=== PATIENT | female | born 1950 | race Two or more races ===

== ENCOUNTER 2020-05-14 03:57 | Inpatient (IN) | payer OTHER, MEDICAID ==
[~2020-05-14] VITALS: Ht 154.9 cm; Wt 46.7 kg
[2020-05-14] MEDS ORDERED: PANTOPRAZOLE 40 MG/10 ML VIAL INJ IV STA (06:51)
[2020-05-14] MEDS ORDERED: SODIUM CHLORIDE 0.9% 500 ML IVB ONE (07:00)
[2020-05-14] MEDS ORDERED: ONDANSETRON HCL 4 MG/2 ML VIAL IV ONE (07:00)
[2020-05-14] MEDS ORDERED: MORPHINE SULFATE 4 MG/ML SYR/VIAL IV ONE (07:00)
[2020-05-14 07:24] LABS: Basophils # (auto) 0.1 10 ^3/uL (0-0.2); Basophils % (auto) 1.1 % (0.0-2.0); Eosinophils # (auto) 0 10 ^3/uL (0-0.8); Hematocrit 45.7 % (36.0-46.0); Hemoglobin 15.4 g/dL (12.2-16.2); Lymphocytes # (auto) 1.3 10 ^3/uL (0.4-5.4); Mean Corpuscular Hgb Conc. 33.7 g/dL (32.0-36.0); Monocytes % (auto) 7.2 % (0.0-12.0); Neutrophils # (auto) 10.8 10 ^3/uL (1.6-8.6); Neutrophils % (auto) 81.7 % (37.0-80.0); Nucleated Red Blood Cells % 0.1 %; Platelet Count (auto) 281 10^3/uL (140-450); Red Blood Cells 4.97 10^6/uL (4.0-5.20); Red Cell Distribution Width 15.3 % (11.8-14.3); White Blood Cell 13.3 10^3/uL (4.4-10.8)
[2020-05-14 07:43] LABS: Albumin 4.9 g/dL (3.4-5.0); Anion Gap 19 (5-15); Calcium 8.7 mg/dL (8.5-10.1); Carbon Dioxide 34 mmol/L (21-32); Chloride 83 mmol/L (98-107); Glucose 156 mg/dL (74-106); Lipase 79 U/L (73-393); Potassium 3.2 mmol/L (3.5-5.1); Sodium 136 mmol/L (136-145)
[2020-05-14 07:50] LABS: Alanine Aminotransferase 33 U/L (13-56); Alkaline Phosphatase 166 U/L (45-117); Aspartate Aminotransferase 20 U/L (15-37); BUN/Creatinine Ratio 10.1; Blood Urea Nitrogen 60 mg/dL (7-18); GFR African American 9 mL/min; GFR Non-African American 7 mL/min; Total Protein 10.7 g/dL (6.4-8.2)
[2020-05-14] MEDS ORDERED: cefTRIAXone 1GM/50ML D5W 50 ML IV ONE (10:45)
[2020-05-14] MEDS ORDERED: DEXTROSE (50%) 50ML SYRG IV PRN (10:45)
[2020-05-14] MEDS ORDERED: PROMETHAZINE HCL 25 MG/ML 1ML IV PRN (10:45)
[2020-05-14] MEDS ORDERED: MORPHINE SULF INJ 2 MG/ML SYRINGE 1ML IV PRN ×2 (10:45)
[2020-05-14] MEDS ORDERED: POTASSIUM EFFERVESENT TAB 25 MEQ PO ONE (10:45)
[2020-05-14] MEDS ORDERED: traMADol HCL 50 MG TAB PO PRN ×2 (10:45→11:15)
[2020-05-14] MEDS ORDERED: NITROGLYCERIN 0.4 MG SL TAB SL PRN (10:45)
[2020-05-14] MEDS ORDERED: ACETAMINOPHEN 500 MG TAB PO PRN (10:45)
[2020-05-14 11:29] LABS: CRP High Sensitivity 0.414 mg/dL (< 0.3)
[2020-05-14] MEDS: ACCU-CHEK COMFORT CURVE STRIP VI SCH ×3 (16:16→22:00)
[2020-05-14] MEDS: SODIUM CHLORIDE 0.9% 1,000 ML IV SCH ×2 (16:16→21:11)
[2020-05-14] MEDS: metroNIDAZOLE 500MG/100ML 100 ML IV SCH (21:10)
[2020-05-14] MEDS: SUCRALFATE 1 GM/10 ML ORAL SUSP PO SCH ×2 (21:17→22:00)
[2020-05-14 21:22] LABS: Urine Bacteria FEW /hpf (None Seen); Urine Blood TRACE /uL (Negative); Urine Mucus FEW (None Seen); Urine Specific Gravity 1.017 (1.001-1.035); Urine WBC 1 /hpf (0 - 5)
[2020-05-15] MEDS: metroNIDAZOLE 500MG/100ML 100 ML IV SCH ×4 (03:03→21:56)
[2020-05-15] MEDS: PANTOPRAZOLE 40 MG TAB PO SCH ×3 (03:03→21:56)
[2020-05-15 06:35] LABS: Basophils # (auto) 0 10 ^3/uL (0-0.2); Basophils % (auto) 0.3 % (0.0-2.0); Eosinophils # (auto) 0 10 ^3/uL (0-0.8); Eosinophils % (auto) 0.2 % (0.0-7.0); Hematocrit 38.6 % (36.0-46.0); Hemoglobin 12.6 g/dL (12.2-16.2); Lymphocytes # (auto) 1.7 10 ^3/uL (0.4-5.4); Lymphocytes % (auto) 19.4 % (10.0-50.0); Mean Corpuscular Hemoglobin 30.2 pg (28.0-32.0); Mean Corpuscular Hgb Conc. 32.7 g/dL (32.0-36.0); Mean Corpuscular Volume 92.1 fL (80.0-100.0); Monocytes # (auto) 0.8 10 ^3/uL (0-1.3); Monocytes % (auto) 9.3 % (0.0-12.0); Neutrophils # (auto) 6.4 10 ^3/uL (1.6-8.6); Neutrophils % (auto) 70.8 % (37.0-80.0); Platelet Count (auto) 204 10^3/uL (140-450); Red Blood Cells 4.19 10^6/uL (4.0-5.20); Red Cell Distribution Width 15.1 % (11.8-14.3)
[2020-05-15 06:47] LABS: INR 1.09 (0.9-1.15)
[2020-05-15 07:03] LABS: Albumin 3.9 g/dL (3.4-5.0); BUN/Creatinine Ratio 18.8; Bilirubin, Total 1.4 mg/dL (0.2-1.0); Calcium 8.7 mg/dL (8.5-10.1); Total Protein 8.4 g/dL (6.4-8.2)
[2020-05-15 07:13] LABS: Potassium 2.8 mmol/L (3.5-5.1)
[2020-05-15] MEDS ORDERED: SODIUM CHLORIDE LOCK 10 ML ONE (09:48)
[2020-05-15] MEDS ORDERED: LIDOCAINE VISCOUS 2% 15ML UD ONE (09:48)
[2020-05-15] MEDS ORDERED: diphenhdrAMINE HCL 50 MG/1 ML VL ONE (09:49)
[2020-05-15] MEDS: cefTRIAXone 1GM/50ML D5W 50 ML IV SCH (09:57)
[2020-05-15] MEDS: SUCRALFATE 1 GM/10 ML ORAL SUSP PO SCH ×4 (09:57→21:56)
[2020-05-15] MEDS: SODIUM CHLORIDE 0.9% 1,000 ML IV SCH ×2 (09:58→16:40)
[2020-05-15] MEDS: ENOXAPARIN SOD 30 MG/0.3 ML SYRINGE SC SCH (10:00)
[2020-05-15] MEDS: ACCU-CHEK COMFORT CURVE STRIP VI SCH ×4 (10:08→21:57)
[2020-05-15] MEDS ORDERED: POTASSIUM CHLORIDE 40 MEQ, LIDOCAINE 1% (LOCAL ANESTH.) 4 ML in SODIUM CHL 0.9% 250 ML IV ONE (11:45)
[2020-05-15] MEDS: MIDAZOLAM HCL 5 MG/ML-1ML VIAL ONE ×2 (12:52→12:55)
[2020-05-15] MEDS: fentaNYL CITRATE 100 MCG/2 ML VL ONE ×2 (12:52→12:55)
[2020-05-15 13:30] VITALS: BP 107/71
[2020-05-15 14:18] VITALS: BP 110/64
[2020-05-15 16:00] VITALS: BP 110/64
[2020-05-15] MEDS ORDERED: ONDA-144 PO (16:24)
[2020-05-15] MEDS ORDERED: OLAN20TA13 PO (16:24)
[2020-05-15] MEDS ORDERED: PANT40TA2 PO (16:24)
[2020-05-15] MEDS ORDERED: INFLUENZA QUAD 2020-2021 0.5 ML SYRG IM ONE (16:30)
[2020-05-15 18:10] LABS: BUN/Creatinine Ratio 26.2; Calcium 8.7 mg/dL (8.5-10.1); Potassium 3.5 mmol/L (3.5-5.1)
[2020-05-15 21:00] VITALS: BP 127/73
[2020-05-16] MEDS: SODIUM CHLORIDE 0.9% 1,000 ML IV SCH ×2 (02:45→12:17)
[2020-05-16 05:00] VITALS: BP 130/72
[2020-05-16] MEDS: ACCU-CHEK COMFORT CURVE STRIP VI SCH ×3 (06:09→17:00)
[2020-05-16] MEDS: SUCRALFATE 1 GM/10 ML ORAL SUSP PO SCH ×2 (06:09→12:15)
[2020-05-16] MEDS: metroNIDAZOLE 500MG/100ML 100 ML IV SCH ×2 (06:09→14:20)
[2020-05-16 09:17] LABS: Basophils # (auto) 0 10 ^3/uL (0-0.2); Basophils % (auto) 0.7 % (0.0-2.0); Eosinophils # (auto) 0 10 ^3/uL (0-0.8); Eosinophils % (auto) 0.7 % (0.0-7.0); Hematocrit 36.2 % (36.0-46.0); Lymphocytes # (auto) 1.9 10 ^3/uL (0.4-5.4); Lymphocytes % (auto) 30.7 % (10.0-50.0); Mean Corpuscular Hemoglobin 31.1 pg (28.0-32.0); Mean Corpuscular Hgb Conc. 33.1 g/dL (32.0-36.0); Mean Corpuscular Volume 93.8 fL (80.0-100.0); Monocytes # (auto) 0.6 10 ^3/uL (0-1.3); Monocytes % (auto) 10.7 % (0.0-12.0); Neutrophils # (auto) 3.5 10 ^3/uL (1.6-8.6); Neutrophils % (auto) 57.2 % (37.0-80.0); Nucleated Red Blood Cells % 0.1 %; Platelet Count (auto) 185 10^3/uL (140-450); Red Blood Cells 3.86 10^6/uL (4.0-5.20); Red Cell Distribution Width 14.4 % (11.8-14.3)
[2020-05-16 09:35] LABS: Calcium 9.5 mg/dL (8.5-10.1); Potassium 3.2 mmol/L (3.5-5.1)
[2020-05-16 09:53] LABS: BUN/Creatinine Ratio 30.7
[2020-05-16] MEDS: cefTRIAXone 1GM/50ML D5W 50 ML IV SCH (10:29)
[2020-05-16] MEDS: PANTOPRAZOLE 40 MG TAB PO SCH (10:29)
[2020-05-16] MEDS: ENOXAPARIN SOD 30 MG/0.3 ML SYRINGE SC SCH (10:30)
[2020-05-16] MEDS ORDERED: POTASSIUM CHL 20 Meq TABLET PO ONE (13:15)
[2020-05-16 15:12] VITALS: BP 142/74
== END 2020-05-16 19:15 | disposition home or self-care (01) | DRG 871 ==
LOC: EDBD 03:57 → ER 03:57 → TELE 03:58 → TELE-WESTW 05-15 12:41
PROVIDERS: ADMIT Internal Medicine; ATTEND Family Medicine
PROC: 3E02340 Introduction of Influenza Vaccine into Muscle, Percutaneous Approach (ICD-10-PCS; 2020-05-15)
PROC: 0DB68ZX Excision of Stomach, Via Natural or Artificial Opening Endoscopic, Diagnostic (ICD-10-PCS; principal; 2020-05-15 11:45)
DX: A41.9 Sepsis, unspecified organism (principal); N17.0 Acute kidney failure with tubular necrosis; N39.0 Urinary tract infection, site not specified; E87.1 Hypo-osmolality and hyponatremia; K29.00 Acute gastritis without bleeding; K29.80 Duodenitis without bleeding; K20.90 Esophagitis, unspecified without bleeding; E87.6 Hypokalemia; E87.8 Other disorders of electrolyte and fluid balance, not elsewhere classified; R19.7 Diarrhea, unspecified; N18.9 Chronic kidney disease, unspecified; K44.9 Diaphragmatic hernia without obstruction or gangrene; R73.9 Hyperglycemia, unspecified; F17.210 Nicotine dependence, cigarettes, uncomplicated; K57.30 Diverticulosis of large intestine without perforation or abscess without bleeding; Z87.442 Personal history of urinary calculi; Z90.49 Acquired absence of other specified parts of digestive tract; Z88.6 Allergy status to analgesic agent; Z20.828 Contact with and (suspected) exposure to other viral communicable diseases; Z23 Encounter for immunization
CPT/HCPCS: 36415; 43239; 74176; 76775; 80048; 80053; 81001; 82550; 82962; 83036; 83690; 84484; 85025; 85610; 85652; 86141; 87086; 93005; 96361; 96374; 96375; 99291; C9113; G0378; J0696; J2001; J2250; J2405; J3490

== ENCOUNTER 2020-11-30 20:32 | Emergency (ER) | payer OTHER, MEDICAID ==
[~2020-11-30] VITALS: Ht 167.6 cm; Wt 81.6 kg
[~2020-11-30 20:32] MED LIST: OLAN20TA PO; ONDA-144 PO; PANT40TA2 PO
[2020-11-30] MEDS ORDERED: ONDANSETRON HCL 4 MG/2 ML VIAL IV ONE (21:30)
[2020-11-30 22:42] LABS: Basophils # (auto) 0.1 10 ^3/uL (0-0.2); Basophils % (auto) 0.5 % (0.0-2.0); Eosinophils # (auto) 0 10 ^3/uL (0-0.8); Hematocrit 47.2 % (36.0-46.0); Hemoglobin 16.6 g/dL (12.2-16.2); Lymphocytes # (auto) 1.6 10 ^3/uL (0.4-5.4); Lymphocytes % (auto) 10.4 % (10.0-50.0); Mean Corpuscular Hemoglobin 30.3 pg (28.0-32.0); Mean Corpuscular Hgb Conc. 35.2 g/dL (32.0-36.0); Monocytes # (auto) 0.9 10 ^3/uL (0-1.3); Monocytes % (auto) 5.7 % (0.0-12.0); Neutrophils # (auto) 12.7 10 ^3/uL (1.6-8.6); Neutrophils % (auto) 83.4 % (37.0-80.0); Red Blood Cells 5.49 10^6/uL (4.0-5.20); Red Cell Distribution Width 14.6 % (11.8-14.3); White Blood Cell 15.2 10^3/uL (4.4-10.8)
[2020-11-30 22:56] LABS: INR 1.14 (0.9-1.15); Partial Thromboplastin Time 26.2 sec (23.0-31.2)
[2020-11-30 22:59] LABS: Albumin 5.2 g/dL (3.4-5.0); Calcium 9.5 mg/dL (8.5-10.1); Magnesium 1.6 mg/dL (1.6-2.6)
[2020-11-30] MEDS ORDERED: SODIUM CHLORIDE 0.9% 500 ML IV ONE (23:00)
[2020-11-30 23:04] LABS: BUN/Creatinine Ratio 8.7
[2020-12-01] MEDS ORDERED: POTASSIUM CHL 20 Meq TABLET PO ONE (04:00)
[2020-12-01] MEDS: POTASSIUM CHL 20MEQ/100ML 100 ML IV SCH ×2 (04:14→05:47)
[2020-12-01 07:45] VITALS: BP 146/93
== END 2020-12-01 05:12 | disposition home or self-care (01) ==
LOC: EDBD 20:32 → ER 20:32
DX: E87.6 Hypokalemia (principal); K52.9 Noninfective gastroenteritis and colitis, unspecified; K21.9 Gastro-esophageal reflux disease without esophagitis; I12.9 Hypertensive chronic kidney disease with stage 1 through stage 4 chronic kidney disease, or unspecified chronic kidney disease; N18.9 Chronic kidney disease, unspecified; F17.210 Nicotine dependence, cigarettes, uncomplicated; Z90.49 Acquired absence of other specified parts of digestive tract; Z79.899 Other long term (current) drug therapy; Z88.6 Allergy status to analgesic agent
CPT/HCPCS: 36415; 71045; 80053; 83735; 83880; 84484; 85025; 85049; 85610; 85730; 93005; 96361; 96365; 96366; 96375; 99285; J2405; J3480

== ENCOUNTER 2021-02-25 18:47 | Inpatient (IN) | payer OTHER, MEDICAID ==
[~2021-02-25] VITALS: Ht 172.7 cm; Wt 47.6 kg
[2021-02-25] MEDS ORDERED: SODIUM CHLORIDE 0.9% 500 ML IVB ONE (19:30)
[2021-02-25] MEDS ORDERED: ONDANSETRON HCL 4 MG/2 ML VIAL IV ONE (19:30)
[2021-02-25 20:33] LABS: Basophils # (auto) 0.1 10 ^3/uL (0-0.2); Basophils % (auto) 0.5 % (0.0-2.0); Eosinophils # (auto) 0 10 ^3/uL (0-0.8); Hematocrit 44.1 % (36.0-46.0); Hemoglobin 14.6 g/dL (12.2-16.2); Lymphocytes # (auto) 1.3 10 ^3/uL (0.4-5.4); Lymphocytes % (auto) 7.7 % (10.0-50.0); Mean Corpuscular Hemoglobin 29.6 pg (28.0-32.0); Mean Corpuscular Hgb Conc. 33.1 g/dL (32.0-36.0); Mean Corpuscular Volume 89.5 fL (80.0-100.0); Monocytes # (auto) 0.5 10 ^3/uL (0-1.3); Neutrophils # (auto) 14.6 10 ^3/uL (1.6-8.6); Neutrophils % (auto) 88.8 % (37.0-80.0); Nucleated Red Blood Cells % 0.1 %; Red Blood Cells 4.93 10^6/uL (4.0-5.20); Red Cell Distribution Width 14.9 % (11.8-14.3); White Blood Cell 16.4 10^3/uL (4.4-10.8)
[2021-02-25] MEDS ORDERED: IOHEXOL 300 MG/ML 100ML BOTTLE IJ ONE (20:39)
[2021-02-25 20:50] LABS: Albumin 4.3 g/dL (3.4-5.0); Calcium 10.4 mg/dL (8.5-10.1); Potassium 3.7 mmol/L (3.5-5.1)
[2021-02-25 20:51] LABS: Lactic Acid w/Reflex 5.2 mmol/L (0.4-2.0)
[2021-02-25 20:53] LABS: BUN/Creatinine Ratio 11.3; Bilirubin, Total 0.8 mg/dL (0.2-1.0); Total Protein 9.7 g/dL (6.4-8.2)
[2021-02-25] MEDS ORDERED: cefTRIAXone 1GM/50ML D5W 50 ML IV ONE (22:00)
[2021-02-25] MEDS ORDERED: SODIUM CHLORIDE 0.9% 500 ML IV ONE (22:00)
[2021-02-26] MEDS ORDERED: ONDANSETRON HCL 4 MG/2 ML VIAL IV ONE (00:45)
[2021-02-26 07:03] LABS: Urine Bacteria NONE SEEN /hpf (None Seen); Urine Blood Negative /uL (Negative); Urine Mucus FEW (None Seen); Urine WBC 3 /hpf (0 - 5)
[2021-02-26 07:37] LABS: Urine Specific Gravity > 1.050 (1.001-1.035)
[2021-02-26] MEDS ORDERED: NITROGLYCERIN 0.4 MG SL TAB SL PRN (09:30)
[2021-02-26] MEDS ORDERED: ONDANSETRON HCL 4 MG/2 ML VIAL IV PRN (09:30)
[2021-02-26] MEDS ORDERED: MORPHINE SULFATE INJECTION 2 MG/ML SYRG IV PRN (09:30)
[2021-02-26] MEDS ORDERED: PANTOPRAZOLE 40 MG/10 ML VIAL INJ IV SCH (10:00)
[2021-02-26 10:38] LABS: Basophils # (auto) 0.1 10 ^3/uL (0-0.2); Basophils % (auto) 0.4 % (0.0-2.0); Eosinophils # (auto) 0 10 ^3/uL (0-0.8); Eosinophils % (auto) 0.1 % (0.0-7.0); Hematocrit 37.9 % (36.0-46.0); Hemoglobin 12.4 g/dL (12.2-16.2); Lymphocytes # (auto) 1.7 10 ^3/uL (0.4-5.4); Mean Corpuscular Hemoglobin 29.6 pg (28.0-32.0); Mean Corpuscular Hgb Conc. 32.8 g/dL (32.0-36.0); Mean Corpuscular Volume 90.2 fL (80.0-100.0); Monocytes # (auto) 1.2 10 ^3/uL (0-1.3); Monocytes % (auto) 7.2 % (0.0-12.0); Neutrophils # (auto) 13.8 10 ^3/uL (1.6-8.6); Neutrophils % (auto) 82.3 % (37.0-80.0); Red Cell Distribution Width 15.3 % (11.8-14.3); White Blood Cell 16.8 10^3/uL (4.4-10.8)
[2021-02-26 11:00] LABS: BUN/Creatinine Ratio 18.4; Calcium 8.3 mg/dL (8.5-10.1); Potassium 3.4 mmol/L (3.5-5.1)
[2021-02-26] MEDS: SODIUM CHLORIDE 0.9% 1,000 ML IV SCH ×2 (11:37→23:04)
[2021-02-26] MEDS: PIPERACILLIN-TAZOB 2.25GM 50 ML IV SCH ×2 (12:35→22:04)
[2021-02-26] MEDS ORDERED: SUCRALFATE 1 GM/10 ML ORAL SUSP ONE (17:25)
[2021-02-26] MEDS: SUCRALFATE 1 GM/10 ML ORAL SUSP PO SCH ×2 (17:28→22:00)
[2021-02-26] MEDS: PANTOPRAZOLE 40 MG/10 ML VIAL INJ IV SCH (22:04)
[2021-02-26 23:30] VITALS: BP 115/68
[2021-02-27 00:18] VITALS: BP 115/68
[2021-02-27] MEDS: PIPERACILLIN-TAZOB 2.25GM 50 ML IV SCH (03:44)
[2021-02-27] MEDS: MORPHINE SULFATE INJECTION 2 MG/ML SYRG IV PRN ×2 (03:45→21:11)
[2021-02-27 05:00] VITALS: BP 129/92
[2021-02-27] MEDS: SUCRALFATE 1 GM/10 ML ORAL SUSP PO SCH ×4 (06:13→21:11)
[2021-02-27 07:21] LABS: Basophils # (auto) 0.1 10 ^3/uL (0-0.2); Basophils % (auto) 0.5 % (0.0-2.0); Eosinophils # (auto) 0.1 10 ^3/uL (0-0.8); Eosinophils % (auto) 0.6 % (0.0-7.0); Hematocrit 30.1 % (36.0-46.0); Lymphocytes # (auto) 1.8 10 ^3/uL (0.4-5.4); Lymphocytes % (auto) 15.9 % (10.0-50.0); Mean Corpuscular Hemoglobin 30.5 pg (28.0-32.0); Mean Corpuscular Hgb Conc. 33.2 g/dL (32.0-36.0); Mean Corpuscular Volume 91.9 fL (80.0-100.0); Monocytes # (auto) 0.9 10 ^3/uL (0-1.3); Monocytes % (auto) 7.7 % (0.0-12.0); Neutrophils # (auto) 8.6 10 ^3/uL (1.6-8.6); Neutrophils % (auto) 75.3 % (37.0-80.0); Nucleated Red Blood Cells % 0.1 %; Red Blood Cells 3.27 10^6/uL (4.0-5.20); Red Cell Distribution Width 15.4 % (11.8-14.3); White Blood Cell 11.4 10^3/uL (4.4-10.8)
[2021-02-27 07:34] LABS: Albumin 2.5 g/dL (3.4-5.0); BUN/Creatinine Ratio 14.6; Bilirubin, Total 0.7 mg/dL (0.2-1.0); Calcium 7.9 mg/dL (8.5-10.1)
[2021-02-27 08:40] VITALS: BP 113/68
[2021-02-27] MEDS ORDERED: SODIUM CHLORIDE LOCK 10 ML ONE (09:08)
[2021-02-27] MEDS ORDERED: LIDOCAINE VISCOUS 2% 15ML UD ONE (09:08)
[2021-02-27] MEDS ORDERED: MIDAZOLAM HCL 5 MG/ML-1ML VIAL ONE (09:09)
[2021-02-27] MEDS ORDERED: fentaNYL CITRATE 100 MCG/2 ML VL ONE (09:09)
[2021-02-27] MEDS ORDERED: diphenhdrAMINE HCL 50 MG/1 ML VL ONE (09:09)
[2021-02-27] MEDS: PANTOPRAZOLE 40 MG/10 ML VIAL INJ IV SCH ×2 (10:04→21:11)
[2021-02-27 10:09] LABS: INR 1.06 (0.9-1.15); Partial Thromboplastin Time 23.5 sec (23.6-33.0)
[2021-02-27] MEDS: POTASSIUM CHL 20MEQ/100ML 100 ML IV SCH ×2 (10:14→12:09)
[2021-02-27] MEDS: SODIUM CHLORIDE 0.9% 1,000 ML IV SCH (12:09)
[2021-02-27 12:27] VITALS: BP 117/71
[2021-02-27] MEDS: cefTRIAXone 1GM/50ML D5W 50 ML IV SCH (13:00)
[2021-02-27] MEDS: DOXYCYCLINE 100MG/250ML 250 ML IV SCH (13:30)
[2021-02-27] MEDS ORDERED: SOD CHL 0.9%/ KCL 20MEQ 1,000 ML IV SCH (17:00)
[2021-02-27 17:28] VITALS: BP 127/88
[2021-02-27 22:00] VITALS: BP 119/73
[2021-02-28 05:00] VITALS: BP 126/72
[2021-02-28] MEDS: SUCRALFATE 1 GM/10 ML ORAL SUSP PO SCH ×4 (06:08→22:01)
[2021-02-28 06:52] LABS: Basophils # (auto) 0.1 10 ^3/uL (0-0.2); Basophils % (auto) 1.1 % (0.0-2.0); Eosinophils # (auto) 0.1 10 ^3/uL (0-0.8); Hematocrit 28.8 % (36.0-46.0); Hemoglobin 9.8 g/dL (12.2-16.2); Lymphocytes # (auto) 2.3 10 ^3/uL (0.4-5.4); Lymphocytes % (auto) 35.5 % (10.0-50.0); Mean Corpuscular Hemoglobin 30.8 pg (28.0-32.0); Mean Corpuscular Volume 90.7 fL (80.0-100.0); Monocytes # (auto) 0.6 10 ^3/uL (0-1.3); Neutrophils # (auto) 3.4 10 ^3/uL (1.6-8.6); Neutrophils % (auto) 52.4 % (37.0-80.0); Nucleated Red Blood Cells % 0.1 %; Red Blood Cells 3.17 10^6/uL (4.0-5.20); Red Cell Distribution Width 14.6 % (11.8-14.3); White Blood Cell 6.5 10^3/uL (4.4-10.8)
[2021-02-28 07:03] LABS: BUN/Creatinine Ratio 9.8; Potassium 3.2 mmol/L (3.5-5.1)
[2021-02-28 09:00] VITALS: BP 125/77
[2021-02-28] MEDS: cefTRIAXone 1GM/50ML D5W 50 ML IV SCH (09:07)
[2021-02-28] MEDS: PANTOPRAZOLE 40 MG/10 ML VIAL INJ IV SCH (09:09)
[2021-02-28] MEDS ORDERED: POTASSIUM CHL 20 Meq TABLET PO ONE (09:15)
[2021-02-28] MEDS: Ensure Enlive Strawberry 8oz Bottle PO SCH ×2 (11:41→16:49)
[2021-02-28] MEDS: DOXYCYCLINE 100MG/250ML 250 ML IV SCH ×2 (11:41)
[2021-02-28 13:00] VITALS: BP 144/93
[2021-02-28 17:00] VITALS: BP 144/81
[2021-02-28] MEDS: OLANZapine 5 MG TAB PO SCH (17:05)
[2021-02-28] MEDS: SODIUM CHLORIDE 0.9% 1,000 ML IV SCH (17:06)
[2021-02-28 22:00] VITALS: BP 157/91
[2021-02-28] MEDS: PANTOPRAZOLE 40 MG TAB PO SCH (22:01)
[2021-02-28] MEDS ORDERED: IOHEXOL 350 MG/ML 100ML IJ ONE (22:10)
[2021-03-01] MEDS: DOXYCYCLINE 100MG/250ML 250 ML IV SCH ×2 (00:07→12:00)
[2021-03-01 05:00] VITALS: BP 136/89
[2021-03-01] MEDS: SUCRALFATE 1 GM/10 ML ORAL SUSP PO SCH ×4 (05:34→22:36)
[2021-03-01] MEDS: SODIUM CHLORIDE 0.9% 1,000 ML IV SCH (06:05)
[2021-03-01 06:31] LABS: Calcium 8.3 mg/dL (8.5-10.1)
[2021-03-01] MEDS: Ensure Enlive Strawberry 8oz Bottle PO SCH ×3 (08:06→18:04)
[2021-03-01 08:45] VITALS: BP 131/82
[2021-03-01] MEDS ORDERED: POTASSIUM EFFERVESENT TAB 25 MEQ PO ONE (09:00)
[2021-03-01] MEDS ORDERED: SODIUM CHLORIDE 0.9% 1,000 ML IV SCH (09:00)
[2021-03-01] MEDS: PANTOPRAZOLE 40 MG TAB PO SCH ×2 (10:09→22:37)
[2021-03-01] MEDS: MORPHINE SULFATE INJECTION 2 MG/ML SYRG IV PRN (12:28)
[2021-03-01 13:19] VITALS: BP 110/73
[2021-03-01 16:52] VITALS: BP 103/68
[2021-03-01] MEDS: OLANZapine 5 MG TAB PO SCH (18:19)
[2021-03-01 22:00] VITALS: BP 106/62
[2021-03-01] MEDS: DOXYCYCLINE 100 MG TAB/CAP PO SCH (22:37)
[2021-03-02] MEDS: SUCRALFATE 1 GM/10 ML ORAL SUSP PO SCH ×4 (06:11→21:36)
[2021-03-02 09:00] VITALS: BP 101/63
[2021-03-02] MEDS: Ensure Enlive Strawberry 8oz Bottle PO SCH ×3 (10:12→17:59)
[2021-03-02] MEDS: DOXYCYCLINE 100 MG TAB/CAP PO SCH ×2 (10:39→21:36)
[2021-03-02] MEDS: PANTOPRAZOLE 40 MG TAB PO SCH ×2 (10:39→21:36)
[2021-03-02 13:00] VITALS: BP 107/62
[2021-03-02 17:00] VITALS: BP 121/68
[2021-03-02] MEDS: OLANZapine 5 MG TAB PO SCH (17:59)
[2021-03-02] MEDS: MORPHINE SULFATE INJECTION 2 MG/ML SYRG IV PRN (20:35)
[2021-03-02 22:00] VITALS: BP 115/72
[2021-03-03 05:47] VITALS: BP 116/76
[2021-03-03] MEDS: SUCRALFATE 1 GM/10 ML ORAL SUSP PO SCH ×4 (06:24→21:29)
[2021-03-03] MEDS: Ensure Enlive Strawberry 8oz Bottle PO SCH ×3 (08:21→17:39)
[2021-03-03 09:00] VITALS: BP 107/65
[2021-03-03] MEDS: DOXYCYCLINE 100 MG TAB/CAP PO SCH ×2 (10:00→21:30)
[2021-03-03] MEDS: PANTOPRAZOLE 40 MG TAB PO SCH ×2 (10:00→21:30)
[2021-03-03 13:00] VITALS: BP 123/72
[2021-03-03 17:00] VITALS: BP 111/68
[2021-03-03] MEDS: OLANZapine 5 MG TAB PO SCH (17:39)
[2021-03-03] MEDS: MORPHINE SULFATE INJECTION 2 MG/ML SYRG IV PRN (21:31)
[2021-03-03 22:00] VITALS: BP 110/69
[2021-03-04 05:00] VITALS: BP 121/58
[2021-03-04] MEDS: SUCRALFATE 1 GM/10 ML ORAL SUSP PO SCH ×4 (06:26→21:20)
[2021-03-04] MEDS: Ensure Enlive Strawberry 8oz Bottle PO SCH ×3 (08:26→17:50)
[2021-03-04 09:00] VITALS: BP 110/60
[2021-03-04] MEDS: PANTOPRAZOLE 40 MG TAB PO SCH ×2 (09:47→21:20)
[2021-03-04] MEDS: DOXYCYCLINE 100 MG TAB/CAP PO SCH ×2 (09:47→21:21)
[2021-03-04 17:00] VITALS: BP 115/73
[2021-03-04] MEDS: OLANZapine 5 MG TAB PO SCH (17:51)
[2021-03-04 22:00] VITALS: BP 115/68
[2021-03-05 05:00] VITALS: BP 116/69
[2021-03-05] MEDS: SUCRALFATE 1 GM/10 ML ORAL SUSP PO SCH ×4 (06:11→20:31)
[2021-03-05 09:00] VITALS: BP 127/76
[2021-03-05] MEDS: PANTOPRAZOLE 40 MG TAB PO SCH ×2 (10:01→20:32)
[2021-03-05] MEDS: Ensure Enlive Strawberry 8oz Bottle PO SCH ×3 (10:01→17:40)
[2021-03-05] MEDS: DOXYCYCLINE 100 MG TAB/CAP PO SCH ×2 (10:01→20:32)
[2021-03-05] MEDS ORDERED: PANT40T PO (11:05)
[2021-03-05] MEDS ORDERED: SUCR1TAB22 OR (11:05)
[2021-03-05 12:37] VITALS: BP 100/71
[2021-03-05 17:00] VITALS: BP 128/84
[2021-03-05] MEDS: OLANZapine 5 MG TAB PO SCH (17:40)
[2021-03-05] MEDS: MORPHINE SULFATE INJECTION 2 MG/ML SYRG IV PRN (20:34)
[2021-03-05 22:00] VITALS: BP 123/80
[2021-03-06 05:00] VITALS: BP 132/89
[2021-03-06] MEDS: SUCRALFATE 1 GM/10 ML ORAL SUSP PO SCH ×3 (05:49→17:00)
[2021-03-06 09:00] VITALS: BP 111/81
[2021-03-06] MEDS: PANTOPRAZOLE 40 MG TAB PO SCH (10:06)
[2021-03-06] MEDS: DOXYCYCLINE 100 MG TAB/CAP PO SCH (10:06)
[2021-03-06] MEDS: Ensure Enlive Strawberry 8oz Bottle PO SCH ×3 (10:06→18:47)
[2021-03-06 10:56] VITALS: BP 111/81
[2021-03-06 13:15] VITALS: BP_SYST 116; BP_SYST 133; BP_DIAS 78; BP_DIAS 80
[2021-03-06 17:18] VITALS: BP 148/84
[2021-03-06] MEDS: OLANZapine 5 MG TAB PO SCH (18:59)
== END 2021-03-06 19:30 | disposition home health service (06) | DRG 391 ==
LOC: EDBD 18:47 → ER 18:56 → TELE 02-26 09:21 → TELE-WESTW 02-26 23:03 → WEST WING 03-04 10:53
PROVIDERS: ADMIT Nurse Practitioner Acute Care; ATTEND Internal Medicine
PROC: 0DB38ZX Excision of Lower Esophagus, Via Natural or Artificial Opening Endoscopic, Diagnostic (ICD-10-PCS; 2021-02-27)
PROC: 0DB98ZX Excision of Duodenum, Via Natural or Artificial Opening Endoscopic, Diagnostic (ICD-10-PCS; principal; 2021-02-27 12:55)
DX: K20.90 Esophagitis, unspecified without bleeding (principal); N17.0 Acute kidney failure with tubular necrosis; R64 Cachexia; N18.4 Chronic kidney disease, stage 4 (severe); E87.2 Acidosis; E44.0 Moderate protein-calorie malnutrition; J98.11 Atelectasis; J90 Pleural effusion, not elsewhere classified; K29.80 Duodenitis without bleeding; G89.29 Other chronic pain; K29.70 Gastritis, unspecified, without bleeding; E86.0 Dehydration; K44.9 Diaphragmatic hernia without obstruction or gangrene; F17.210 Nicotine dependence, cigarettes, uncomplicated; I12.9 Hypertensive chronic kidney disease with stage 1 through stage 4 chronic kidney disease, or unspecified chronic kidney disease; R62.7 Adult failure to thrive; K21.9 Gastro-esophageal reflux disease without esophagitis; E87.6 Hypokalemia; D72.829 Elevated white blood cell count, unspecified; J43.9 Emphysema, unspecified; Z20.822 Contact with and (suspected) exposure to COVID-19; Z82.0 Family history of epilepsy and other diseases of the nervous system; Z87.440 Personal history of urinary (tract) infections; Z98.51 Tubal ligation status; Z88.6 Allergy status to analgesic agent; Z90.49 Acquired absence of other specified parts of digestive tract; Z68.21 Body mass index [BMI] 21.0-21.9, adult
CPT/HCPCS: 36415; 43239; 71045; 71250; 71275; 74177; 78582; 80048; 80053; 81001; 83605; 83690; 85025; 85379; 85610; 85730; 86141; 86850; 86900; 86901; 87040; 87077; 87081; 87086; 87186; 87426; 93005; 96361; 96365; 96366; 96367; 96375; 96376; C9113; G0378; J0696; J2250; J2405; J2543; J3480; J3490

== ENCOUNTER 2021-03-24 14:37 | Inpatient (IN) | payer OTHER, MEDICAID ==
[~2021-03-24] VITALS: Ht 157.5 cm; Wt 52.6 kg
[~2021-03-24 14:37] MED LIST changes: +PANT40T PO; -PANT40TA2 PO; +SUCR1TAB22 OR
[2021-03-24] MEDS ORDERED: SODIUM CHLORIDE 0.9% 1,000 ML IV ONE ×2 (14:45)
[2021-03-24] MEDS ORDERED: MORPHINE SULFATE INJECTION 2 MG/ML SYRG IV PRN (23:00)
[2021-03-24] MEDS ORDERED: NITROGLYCERIN 0.4 MG SL TAB SL PRN (23:00)
[2021-03-24] MEDS ORDERED: ACETAMINOPHEN 325 MG TAB PO PRN (23:00)
[2021-03-24] MEDS ORDERED: D5W/SOD CHL 0.45% 1,000 ML IV SCH (23:00)
[2021-03-24] MEDS ORDERED: DOCUSATE SOD 100 MG CAP PO PRN (23:00)
[2021-03-24] MEDS ORDERED: ONDANSETRON HCL 4 MG/2 ML VIAL IV PRN (23:00)
[2021-03-24 23:19] LABS: Basophils # (auto) 0.1 10 ^3/uL (0-0.2); Basophils % (auto) 0.4 % (0.0-2.0); Eosinophils # (auto) 0 10 ^3/uL (0-0.8); Eosinophils % (auto) 0.1 % (0.0-7.0); Lymphocytes # (auto) 1.7 10 ^3/uL (0.4-5.4); Lymphocytes % (auto) 11.1 % (10.0-50.0); Mean Corpuscular Hemoglobin 30.2 pg (28.0-32.0); Mean Corpuscular Hgb Conc. 32.1 g/dL (32.0-36.0); Mean Corpuscular Volume 93.9 fL (80.0-100.0); Monocytes # (auto) 1.2 10 ^3/uL (0-1.3); Monocytes % (auto) 7.7 % (0.0-12.0); Neutrophils # (auto) 12.4 10 ^3/uL (1.6-8.6); Neutrophils % (auto) 80.7 % (37.0-80.0); Nucleated Red Blood Cells % 0.4 %; Red Blood Cells 5.65 10^6/uL (4.0-5.20); Red Cell Distribution Width 16.8 % (11.8-14.3); White Blood Cell 15.4 10^3/uL (4.4-10.8)
[2021-03-24 23:38] LABS: Albumin 3.5 g/dL (3.4-5.0); Anion Gap 26 (5-15); Carbon Dioxide 29 mmol/L (21-32); Chloride 85 mmol/L (98-107); Glucose 172 mg/dL (74-106); Potassium 4.8 mmol/L (3.5-5.1); Sodium 140 mmol/L (136-145)
[2021-03-24 23:40] LABS: Alanine Aminotransferase 52 U/L (13-56); Aspartate Aminotransferase 73 U/L (15-37); BUN/Creatinine Ratio 13.7; GFR African American 7 mL/min; GFR Non-African American 6 mL/min
[2021-03-24 23:42] LABS: Alkaline Phosphatase 136 U/L (45-117); Bilirubin, Total 1.2 mg/dL (0.2-1.0)
[2021-03-24 23:45] LABS: Blood Urea Nitrogen 98 mg/dL (7-18)
[2021-03-25] MEDS ORDERED: cefTRIAXone 1GM/50ML D5W 50 ML IV SCH (02:00)
[2021-03-25 02:48] VITALS: BP 112/95
[2021-03-25 05:00] VITALS: BP 112/95
[2021-03-25 07:00] LABS: Urine Bacteria FEW /hpf (None Seen); Urine Blood 1+ /uL (Negative); Urine Hyaline Cast FEW /lpf (0 - 2); Urine Mucus FEW (None Seen); Urine Specific Gravity 1.025 (1.001-1.035); Urine WBC 9 /hpf (0 - 5)
[2021-03-25 08:46] VITALS: BP 111/75
[2021-03-25 09:10] LABS: Basophils # (auto) 0.1 10 ^3/uL (0-0.2); Basophils % (auto) 0.4 % (0.0-2.0); Eosinophils # (auto) 0 10 ^3/uL (0-0.8); Eosinophils % (auto) 0.1 % (0.0-7.0); Hematocrit 54.6 % (36.0-46.0); Hemoglobin 17.6 g/dL (12.2-16.2); Lymphocytes % (auto) 13.3 % (10.0-50.0); Mean Corpuscular Hemoglobin 29.9 pg (28.0-32.0); Mean Corpuscular Hgb Conc. 32.2 g/dL (32.0-36.0); Monocytes # (auto) 1.5 10 ^3/uL (0-1.3); Neutrophils # (auto) 11.4 10 ^3/uL (1.6-8.6); Neutrophils % (auto) 76.2 % (37.0-80.0); Nucleated Red Blood Cells % 0.3 %; Red Blood Cells 5.87 10^6/uL (4.0-5.20); Red Cell Distribution Width 16.3 % (11.8-14.3); White Blood Cell 14.9 10^3/uL (4.4-10.8)
[2021-03-25 09:34] LABS: Albumin 3.6 g/dL (3.4-5.0); Anion Gap 29 (5-15); Calcium 7.7 mg/dL (8.5-10.1); Carbon Dioxide 29 mmol/L (21-32); Chloride 91 mmol/L (98-107); Glucose 157 mg/dL (74-106); Potassium 3.5 mmol/L (3.5-5.1); Sodium 149 mmol/L (136-145)
[2021-03-25 09:36] LABS: GFR African American 6 mL/min; GFR Non-African American 5 mL/min
[2021-03-25 09:39] LABS: Alanine Aminotransferase 50 U/L (13-56); Alkaline Phosphatase 125 U/L (45-117); Aspartate Aminotransferase 56 U/L (15-37); Bilirubin, Total 0.8 mg/dL (0.2-1.0); Total Protein 8.4 g/dL (6.4-8.2)
[2021-03-25 09:45] LABS: Lactic Acid w/Reflex 7.8 mmol/L (0.4-2.0)
[2021-03-25] MEDS: MULTIPLE VITAMIN TAB PO SCH (09:54)
[2021-03-25 10:00] LABS: Blood Urea Nitrogen 121 mg/dL (7-18)
[2021-03-25] MEDS ORDERED: FAMOTIDINE (10MG/ML) 2ML VL IV SCH (10:00)
[2021-03-25] MEDS ORDERED: ASCORBIC ACID 500 MG TAB PO SCH (10:00)
[2021-03-25] MEDS ORDERED: ENOXAPARIN SOD 30 MG/0.3 ML SYRINGE SC SCH (10:00)
[2021-03-25] MEDS ORDERED: ZINC SULFATE 220mg CAP or TAB PO SCH (10:00)
[2021-03-25 12:06] LABS: Protein, Urine 242.5 mg/dL (0.0-11.9)
[2021-03-25 12:49] VITALS: BP 132/100
[2021-03-25] MEDS: PANTOPRAZOLE 40 MG/10 ML VIAL INJ IV SCH ×2 (13:27→22:53)
[2021-03-25] MEDS: VANCOMYCIN HCL 125MG/5ML ORAL SOL PO SCH ×3 (13:33→22:54)
[2021-03-25] MEDS: HEPARIN SODIUM (PORCINE) 5000 UNITS/ML 1ML VIAL SC SCH ×2 (13:43→22:55)
[2021-03-25] MEDS: MEROPENEM 500MG IVPB 50 ML IV SCH (13:58)
[2021-03-25] MEDS ORDERED: MEROPENEM 1GM IVPB 100 ML IV SCH (14:00)
[2021-03-25 15:25] LABS: Hematocrit 52.9 % (36.0-46.0); Hemoglobin 16.9 g/dL (12.2-16.2); Mean Corpuscular Hgb Conc. 31.9 g/dL (32.0-36.0); Mean Corpuscular Volume 94.2 fL (80.0-100.0); Red Blood Cells 5.62 10^6/uL (4.0-5.20); Red Cell Distribution Width 16.4 % (11.8-14.3); White Blood Cell 12.8 10^3/uL (4.4-10.8)
[2021-03-25 15:30] LABS: Basophils % (manual) 0 (0.0-2.0); Blast Cells 0; Eosinophils % (manual) 0 (0-7); Myelocytes % 0; Promyelocytes % 0; Reactive Lymphocytes 0
[2021-03-25 15:35] LABS: Calcium 7.5 mg/dL (8.5-10.1)
[2021-03-25 15:39] LABS: Lactic Acid w/Reflex 6.8 mmol/L (0.4-2.0)
[2021-03-25 15:51] LABS: Band Neutrophils % (manual) 9; Lymphocytes % (manual) 20 (10.0-50.0); Metamyelocytes % 2; Monocytes % (manual) 12 (0-12)
[2021-03-25 15:54] LABS: BUN/Creatinine Ratio 16.1; Potassium 3.4 mmol/L (3.5-5.1)
[2021-03-25 17:00] VITALS: BP 104/73
[2021-03-25] MEDS ORDERED: DOPamine 1600MCG/ML D5W 250 ML IV ONE (17:00)
[2021-03-25] MEDS: D5W/SOD CHL 0.45% 1,000 ML IV SCH ×2 (19:15→21:30)
[2021-03-25 22:00] VITALS: BP 100/71
[2021-03-25] MEDS: MUPIROCIN 2% OINT 15gm or 22gm EACHNOSTRI SCH (22:53)
[2021-03-25] MEDS: LINEZOLID 600MG/300ML 300 ML IV SCH (22:54)
[2021-03-26 05:00] VITALS: BP 134/93
[2021-03-26] MEDS: VANCOMYCIN HCL 125MG/5ML ORAL SOL PO SCH (06:20)
[2021-03-26] MEDS: D5W/SOD CHL 0.45% 1,000 ML IV SCH ×3 (06:20→21:21)
[2021-03-26 09:00] VITALS: BP 132/94
[2021-03-26 09:12] LABS: Basophils # (auto) 0 10 ^3/uL (0-0.2); Basophils % (auto) 0.2 % (0.0-2.0); Eosinophils # (auto) 0.2 10 ^3/uL (0-0.8); Eosinophils % (auto) 1.2 % (0.0-7.0); Hematocrit 47.2 % (36.0-46.0); Hemoglobin 15.4 g/dL (12.2-16.2); Lymphocytes # (auto) 1.6 10 ^3/uL (0.4-5.4); Lymphocytes % (auto) 10.5 % (10.0-50.0); Mean Corpuscular Hemoglobin 30.9 pg (28.0-32.0); Mean Corpuscular Hgb Conc. 32.6 g/dL (32.0-36.0); Mean Corpuscular Volume 94.7 fL (80.0-100.0); Monocytes # (auto) 0.7 10 ^3/uL (0-1.3); Monocytes % (auto) 4.3 % (0.0-12.0); Neutrophils # (auto) 13.2 10 ^3/uL (1.6-8.6); Neutrophils % (auto) 83.8 % (37.0-80.0); Nucleated Red Blood Cells % 0.5 %; Red Blood Cells 4.98 10^6/uL (4.0-5.20); Red Cell Distribution Width 16.2 % (11.8-14.3); White Blood Cell 15.7 10^3/uL (4.4-10.8)
[2021-03-26 09:33] LABS: Albumin 3.1 g/dL (3.4-5.0); Calcium 7.6 mg/dL (8.5-10.1); Magnesium 2.4 mg/dL (1.6-2.6); Potassium 3.6 mmol/L (3.5-5.1)
[2021-03-26 09:34] LABS: Lactic Acid w/Reflex 2.7 mmol/L (0.4-2.0)
[2021-03-26 09:51] LABS: BUN/Creatinine Ratio 16.4; Bilirubin, Total 1.3 mg/dL (0.2-1.0); Phosphorus 7.7 mg/dL (2.5-4.90); Total Protein 7.8 g/dL (6.4-8.2)
[2021-03-26] MEDS: MUPIROCIN 2% OINT 15gm or 22gm EACHNOSTRI SCH ×2 (10:00→21:21)
[2021-03-26] MEDS: MULTIPLE VITAMIN TAB PO SCH ×2 (10:00→10:07)
[2021-03-26] MEDS: LINEZOLID 600MG/300ML 300 ML IV SCH ×2 (10:07→21:22)
[2021-03-26] MEDS: PANTOPRAZOLE 40 MG/10 ML VIAL INJ IV SCH ×2 (10:07→21:21)
[2021-03-26] MEDS: HEPARIN SODIUM (PORCINE) 5000 UNITS/ML 1ML VIAL SC SCH ×2 (10:08→21:23)
[2021-03-26 13:00] VITALS: BP 141/91
[2021-03-26] MEDS: BUMETANIDE 2.5mg/10ml (0.25 mg/ml) INJ IV SCH (13:10)
[2021-03-26] MEDS: MEROPENEM 500MG IVPB 50 ML IV SCH (13:10)
[2021-03-26 17:00] VITALS: BP 148/88
[2021-03-26] MEDS ORDERED: LORazepam 2MG/ML-1ML VIAL IV PRN (21:30)
[2021-03-26 22:00] VITALS: BP 122/92
[2021-03-26] MEDS: ATORVASTATIN 20 MG TAB PO SCH (22:00)
[2021-03-26 22:21] LABS: Triglycerides 231 mg/dL (< 150)
[2021-03-26 22:24] LABS: Cholesterol 157 mg/dL (< 200); HDL Cholesterol 44 mg/dL (40-59); LDL Cholesterol 96 mg/dL (< 100)
[2021-03-26 22:47] LABS: Folate (Folic Acid) 18.27 ng/mL (5.38-24)
[2021-03-27] MEDS: D5W/SOD CHL 0.45% 1,000 ML IV SCH ×3 (04:19→21:21)
[2021-03-27 05:00] VITALS: BP 130/89
[2021-03-27 06:28] LABS: Calcium 8.1 mg/dL (8.5-10.1)
[2021-03-27 06:38] LABS: Lactic Acid w/Reflex 2.6 mmol/L (0.4-2.0)
[2021-03-27 06:39] LABS: Albumin 2.8 g/dL (3.4-5.0); Bilirubin, Total 1.5 mg/dL (0.2-1.0); Total Protein 7.3 g/dL (6.4-8.2)
[2021-03-27 08:26] LABS: BUN/Creatinine Ratio 19.7
[2021-03-27 09:19] VITALS: BP 123/83
[2021-03-27] MEDS: MULTIPLE VITAMIN TAB PO SCH (10:00)
[2021-03-27] MEDS: CLOPIDOGREL BISULFATE 75 MG TAB PO SCH (10:00)
[2021-03-27] MEDS: BUMETANIDE 2.5mg/10ml (0.25 mg/ml) INJ IV SCH (10:43)
[2021-03-27] MEDS: MUPIROCIN 2% OINT 15gm or 22gm EACHNOSTRI SCH ×2 (10:43→21:21)
[2021-03-27] MEDS: MEROPENEM 500MG IVPB 50 ML IV SCH (10:44)
[2021-03-27] MEDS: LINEZOLID 600MG/300ML 300 ML IV SCH ×2 (10:44→21:22)
[2021-03-27] MEDS: PANTOPRAZOLE 40 MG/10 ML VIAL INJ IV SCH ×2 (10:44→21:21)
[2021-03-27] MEDS: HEPARIN SODIUM (PORCINE) 5000 UNITS/ML 1ML VIAL SC SCH ×2 (10:45→21:27)
[2021-03-27 13:00] VITALS: BP 111/78
[2021-03-27] MEDS: POTASSIUM CHL 20MEQ/100ML 100 ML IV SCH ×3 (14:54→21:00)
[2021-03-27 18:03] VITALS: BP 104/61
[2021-03-27] MEDS: ATORVASTATIN 20 MG TAB PO SCH (21:22)
[2021-03-27 22:00] VITALS: BP 116/77
[2021-03-28] MEDS: D5W/SOD CHL 0.45% 1,000 ML IV SCH ×2 (04:13→11:30)
[2021-03-28 05:00] VITALS: BP 111/67
[2021-03-28 06:22] LABS: Hematocrit 40.1 % (36.0-46.0); Hemoglobin 13.1 g/dL (12.2-16.2); Mean Corpuscular Hemoglobin 30.1 pg (28.0-32.0); Mean Corpuscular Hgb Conc. 32.7 g/dL (32.0-36.0); Mean Corpuscular Volume 92.1 fL (80.0-100.0); Red Blood Cells 4.35 10^6/uL (4.0-5.20); Red Cell Distribution Width 15.4 % (11.8-14.3); White Blood Cell 11.8 10^3/uL (4.4-10.8)
[2021-03-28 06:28] LABS: Basophils % (manual) 0 (0.0-2.0); Blast Cells 0; Eosinophils % (manual) 0 (0-7); Metamyelocytes % 0; Promyelocytes % 0; Reactive Lymphocytes 0
[2021-03-28 06:48] LABS: Albumin 2.5 g/dL (3.4-5.0); Calcium 8.1 mg/dL (8.5-10.1); Magnesium 1.7 mg/dL (1.6-2.6)
[2021-03-28 06:52] LABS: BUN/Creatinine Ratio 28.3; Bilirubin, Total 1.6 mg/dL (0.2-1.0); Total Protein 6.8 g/dL (6.4-8.2)
[2021-03-28 07:45] LABS: Potassium 2.8 mmol/L (3.5-5.1)
[2021-03-28 07:57] LABS: Band Neutrophils % (manual) 36; Lymphocytes % (manual) 18 (10.0-50.0); Monocytes % (manual) 9 (0-12); Myelocytes % 2
[2021-03-28 09:04] VITALS: BP 100/68
[2021-03-28] MEDS: MUPIROCIN 2% OINT 15gm or 22gm EACHNOSTRI SCH ×2 (09:27→22:14)
[2021-03-28] MEDS: BUMETANIDE 2.5mg/10ml (0.25 mg/ml) INJ IV SCH (09:28)
[2021-03-28] MEDS: PANTOPRAZOLE 40 MG/10 ML VIAL INJ IV SCH ×2 (09:28→21:06)
[2021-03-28] MEDS: LINEZOLID 600MG/300ML 300 ML IV SCH ×2 (09:28→21:07)
[2021-03-28] MEDS: CLOPIDOGREL BISULFATE 75 MG TAB PO SCH (09:29)
[2021-03-28] MEDS: MULTIPLE VITAMIN TAB PO SCH (09:29)
[2021-03-28] MEDS ORDERED: POTASSIUM CHLORIDE 20 MEQ, LIDOCAINE 1% (LOCAL ANESTH.) 2 ML in SODIUM CHL 0.9% 100 ML IV ONE (09:30)
[2021-03-28] MEDS ORDERED: POTASSIUM EFFERVESENT TAB 25 MEQ PO ONE (09:30)
[2021-03-28] MEDS: HEPARIN SODIUM (PORCINE) 5000 UNITS/ML 1ML VIAL SC SCH ×2 (09:30→21:09)
[2021-03-28] MEDS: MEROPENEM 500MG IVPB 50 ML IV SCH (11:34)
[2021-03-28] MEDS: MAGNESIUM SULFATE 1GM/100ML 100 ML IV SCH ×2 (12:17→13:57)
[2021-03-28 13:00] VITALS: BP 123/70
[2021-03-28 16:43] VITALS: BP 102/74
[2021-03-28] MEDS: LACTATED RINGER'S 1,000 ML IV SCH (18:03)
[2021-03-28] MEDS: ATORVASTATIN 20 MG TAB PO SCH (21:07)
[2021-03-28 22:00] VITALS: BP 109/73
[2021-03-29] MEDS: LACTATED RINGER'S 1,000 ML IV SCH (01:50)
[2021-03-29 05:00] VITALS: BP 113/74
[2021-03-29 06:33] LABS: BUN/Creatinine Ratio 33.5; Calcium 8.7 mg/dL (8.5-10.1)
[2021-03-29] MEDS: PANTOPRAZOLE 40 MG/10 ML VIAL INJ IV SCH ×2 (08:51→21:42)
[2021-03-29] MEDS: LINEZOLID 600MG/300ML 300 ML IV SCH ×2 (08:51→21:42)
[2021-03-29] MEDS: MULTIPLE VITAMIN TAB PO SCH (08:52)
[2021-03-29] MEDS: CLOPIDOGREL BISULFATE 75 MG TAB PO SCH (08:52)
[2021-03-29] MEDS: MUPIROCIN 2% OINT 15gm or 22gm EACHNOSTRI SCH ×2 (08:53→21:41)
[2021-03-29 09:00] VITALS: BP 105/68
[2021-03-29] MEDS: HEPARIN SODIUM (PORCINE) 5000 UNITS/ML 1ML VIAL SC SCH ×2 (10:00→21:46)
[2021-03-29] MEDS: POTASSIUM CHL 20MEQ/100ML 100 ML IV SCH ×3 (11:30→15:44)
[2021-03-29] MEDS: MAGNESIUM SULFATE 1GM/100ML 100 ML IV SCH ×2 (12:00→14:39)
[2021-03-29 13:00] VITALS: BP 116/70
[2021-03-29] MEDS: SOD CHL 0.45% 1,000 ML IV SCH ×2 (13:00→22:35)
[2021-03-29] MEDS: MEROPENEM 500MG IVPB 50 ML IV SCH ×2 (14:30→17:30)
[2021-03-29] MEDS: HYDROcodone-ACET 5/325MG TAB PO PRN (15:46)
[2021-03-29 17:00] VITALS: BP 120/67
[2021-03-29 22:00] VITALS: BP 120/69
[2021-03-30] MEDS: SOD CHL 0.45% 1,000 ML IV SCH (04:21)
[2021-03-30] MEDS: HYDROcodone-ACET 5/325MG TAB PO PRN (04:22)
[2021-03-30 05:13] VITALS: BP 124/69
[2021-03-30 06:46] LABS: Bilirubin, Direct 0.3 mg/dL (0-0.2); Calcium 8.2 mg/dL (8.5-10.1); Magnesium 2.1 mg/dL (1.6-2.6); Potassium 3.6 mmol/L (3.5-5.1)
[2021-03-30 06:49] LABS: BUN/Creatinine Ratio 45.1; Total Protein 5.6 g/dL (6.4-8.2)
[2021-03-30] MEDS: MULTIPLE VITAMIN TAB PO SCH (08:24)
[2021-03-30] MEDS: LINEZOLID 600MG/300ML 300 ML IV SCH ×3 (08:24→21:59)
[2021-03-30] MEDS: PANTOPRAZOLE 40 MG/10 ML VIAL INJ IV SCH ×3 (08:24→21:59)
[2021-03-30] MEDS: CLOPIDOGREL BISULFATE 75 MG TAB PO SCH (08:24)
[2021-03-30] MEDS: MUPIROCIN 2% OINT 15gm or 22gm EACHNOSTRI SCH (08:55)
[2021-03-30] MEDS: HEPARIN SODIUM (PORCINE) 5000 UNITS/ML 1ML VIAL SC SCH ×2 (09:04→21:59)
[2021-03-30] MEDS: MEROPENEM 500MG IVPB 50 ML IV SCH ×2 (09:04→23:42)
[2021-03-30 09:28] VITALS: BP_SYST 122; BP_SYST 68; BP_DIAS 68; BP_DIAS 69
[2021-03-30 13:06] VITALS: BP 112/73
[2021-03-30 17:00] VITALS: BP 126/76
[2021-03-30 22:00] VITALS: BP 112/66
[2021-03-31] VITALS (45 sets, daily range): BP systolic 69–156; BP diastolic 37–96
[2021-03-31] MEDS: SOD CHL 0.45% 1,000 ML IV SCH (00:35)
[2021-03-31] MEDS: HYDROcodone-ACET 5/325MG TAB PO PRN (06:05)
[2021-03-31] MEDS: CLOPIDOGREL BISULFATE 75 MG TAB PO SCH (09:36)
[2021-03-31] MEDS: PANTOPRAZOLE 40 MG/10 ML VIAL INJ IV SCH (09:36)
[2021-03-31] MEDS: MULTIPLE VITAMIN TAB PO SCH (09:36)
[2021-03-31] MEDS: LINEZOLID 600MG/300ML 300 ML IV SCH (09:52)
[2021-03-31] MEDS: MEROPENEM 500MG IVPB 50 ML IV SCH (10:30)
[2021-03-31] MEDS: HEPARIN SODIUM (PORCINE) 5000 UNITS/ML 1ML VIAL SC SCH (10:30)
[2021-03-31 11:54] LABS: Hematocrit 18.3 % (36.0-46.0); Mean Corpuscular Hemoglobin 31.5 pg (28.0-32.0); Mean Corpuscular Hgb Conc. 30.8 g/dL (32.0-36.0); Mean Corpuscular Volume 102.2 fL (80.0-100.0); Red Cell Distribution Width 15.9 % (11.8-14.3); White Blood Cell 11.5 10^3/uL (4.4-10.8)
[2021-03-31 12:10] LABS: Basophils % (manual) 0 (0.0-2.0); Eosinophils % (manual) 0 (0-7); Hemoglobin 5.7 g/dL (12.2-16.2); Promyelocytes % 0
[2021-03-31 12:11] LABS: Blast Cells 0; Reactive Lymphocytes 0
[2021-03-31 12:14] LABS: Albumin 1.9 g/dL (3.4-5.0); Calcium 8.2 mg/dL (8.5-10.1); Magnesium 2.1 mg/dL (1.6-2.6); Potassium 4.4 mmol/L (3.5-5.1)
[2021-03-31 12:15] LABS: BUN/Creatinine Ratio 36.2; Calcium 8.3 mg/dL (8.5-10.1)
[2021-03-31 12:25] LABS: BUN/Creatinine Ratio 35.9; Phosphorus 5.8 mg/dL (2.5-4.90); Total Protein 5.1 g/dL (6.4-8.2)
[2021-03-31 13:02] LABS: Band Neutrophils % (manual) 21; Lymphocytes % (manual) 18 (10.0-50.0); Metamyelocytes % 3; Monocytes % (manual) 3 (0-12); Myelocytes % 2
[2021-03-31] MEDS ORDERED: SUCCINYLCHOLINE CHLORIDE 20 MG/ML 10ML VIAL IV ONE (13:07)
[2021-03-31] MEDS ORDERED: ROCURONIUM 10MG/ML 10ML VIAL IV ONE ×3 (13:07→15:33)
[2021-03-31] MEDS ORDERED: ETOMIDATE (2MG/ML) 20ML VIAL IV ONE (13:08)
[2021-03-31] MEDS ORDERED: NOREPINEPHRINE 8 MG/250ML KIT 250 ML IV ONE (13:11)
[2021-03-31] MEDS ORDERED: MIDAZOLAM DRIP 50 mg/50mL 50 ML IV ONE (13:11)
[2021-03-31 13:12] LABS: Hematocrit 19.2 % (36.0-46.0); Hemoglobin 5.4 g/dL (12.2-16.2)
[2021-03-31] MEDS: PROPOFOL 100 ML IV SCH (13:30)
[2021-03-31] MEDS: MIDAZOLAM DRIP 50 mg/50mL 50 ML IV SCH ×2 (13:30→20:47)
[2021-03-31] MEDS ORDERED: SODIUM BICARBONATE 8.4 % INJ 50ML VIAL IV ONE (14:30)
[2021-03-31] MEDS: SODIUM BICARBONATE 50ML VIAL 150 ML in D5W 5% 1,000 ML IV SCH (14:30)
[2021-03-31] MEDS: SUCRALFATE 1 GM/10 ML ORAL SUSP PO SCH ×2 (17:00→21:36)
[2021-03-31] MEDS: NOREPINEPHRINE 8 MG/250ML KIT 250 ML IV SCH (18:00)
[2021-03-31] MEDS: PIPERACILLIN-TAZOB 2.25GM 100 ML IV SCH (21:37)
[2021-03-31 21:39] LABS: Hemoglobin 10.5 g/dL (12.2-16.2)
[2021-03-31 21:51] LABS: INR 2.23 (0.9-1.15)
[2021-04-01] VITALS (91 sets, daily range): BP systolic 49–165; BP diastolic 16–89
[2021-04-01 01:55] LABS: Hematocrit 31.7 % (36.0-46.0); Hemoglobin 10.3 g/dL (12.2-16.2); Mean Corpuscular Hemoglobin 31.1 pg (28.0-32.0); Mean Corpuscular Hgb Conc. 32.5 g/dL (32.0-36.0); Mean Corpuscular Volume 95.7 fL (80.0-100.0); Red Blood Cells 3.31 10^6/uL (4.0-5.20); Red Cell Distribution Width 15.8 % (11.8-14.3)
[2021-04-01 01:57] LABS: White Blood Cell 31.1 10^3/uL (4.4-10.8)
[2021-04-01 01:59] LABS: Basophils % (manual) 0 (0.0-2.0); Blast Cells 0; Eosinophils % (manual) 0 (0-7); Promyelocytes % 0; Reactive Lymphocytes 0
[2021-04-01 02:07] LABS: Albumin 1.6 g/dL (3.4-5.0); BUN/Creatinine Ratio 25.9; Calcium 6.8 mg/dL (8.5-10.1); Potassium 4.1 mmol/L (3.5-5.1)
[2021-04-01 02:16] LABS: Bilirubin, Total 1.9 mg/dL (0.2-1.0); Total Protein 4.4 g/dL (6.4-8.2)
[2021-04-01] MEDS ORDERED: VANCOMYCIN 1GM/250ML 250 ML IV ONE (03:00)
[2021-04-01 03:37] LABS: Band Neutrophils % (manual) 15; Lymphocytes % (manual) 12 (10.0-50.0); Metamyelocytes % 1; Monocytes % (manual) 4 (0-12); Myelocytes % 1
[2021-04-01] MEDS: SODIUM BICARBONATE 50ML VIAL 150 ML in D5W 5% 1,000 ML IV SCH (04:10)
[2021-04-01] MEDS ORDERED: VANCOMYCIN PER PHARMACY 0 MG IV SCH (06:00)
[2021-04-01] MEDS: PIPERACILLIN-TAZOB 2.25GM 100 ML IV SCH ×3 (06:05→21:58)
[2021-04-01] MEDS: SUCRALFATE 1 GM/10 ML ORAL SUSP PO SCH ×2 (07:00→09:29)
[2021-04-01] MEDS: SOD CHL 0.45% 1,000 ML IV SCH ×2 (09:15→20:30)
[2021-04-01] MEDS ORDERED: PHENYLEPHRINE IV 250 ML IV ONE (09:32)
[2021-04-01] MEDS ORDERED: NOREPINEPHRINE 8 MG/250ML KIT 250 ML IV ONE (09:33)
[2021-04-01] MEDS: MULTIPLE VITAMIN TAB PO SCH (09:47)
[2021-04-01] MEDS: PANTOPRAZOLE 40 MG/10 ML VIAL INJ IV SCH ×2 (09:47→22:00)
[2021-04-01 10:58] LABS: Hematocrit 29.2 % (36.0-46.0); Hemoglobin 9.7 g/dL (12.2-16.2)
[2021-04-01] MEDS: PHENYLEPHRINE IV 250 ML IV SCH ×2 (11:00→23:01)
[2021-04-01] MEDS ORDERED: IOHEXOL 350 MG/ML 100ML IJ ONE (11:20)
[2021-04-01 12:04] LABS: Lactic Acid w/Reflex 20.8 mmol/L (0.4-2.0)
[2021-04-01] MEDS: PROPOFOL 100 ML IV SCH (13:30)
[2021-04-01] MEDS: NOREPINEPHRINE 8 MG/250ML KIT 250 ML IV SCH ×2 (15:12→20:45)
[2021-04-01 17:02] LABS: Hemoglobin 8.4 g/dL (12.2-16.2)
[2021-04-01] MEDS: MIDAZOLAM DRIP 50 mg/50mL 50 ML IV SCH (19:30)
[2021-04-01] MEDS ORDERED: VASOPRESSIN 50 UNITS in D5W 5% 247.5 ML IV SCH (22:30)
[2021-04-01] MEDS ORDERED: SODIUM BICARBONATE 8.4% INJ 50ML SYRINGE ONE ×2 (22:36→22:41)
[2021-04-01] MEDS ORDERED: VASOPRESSIN 20 UNIT/ML ONE (22:36)
[2021-04-01] MEDS ORDERED: SODIUM BICARBONATE 8.4 % INJ 50ML VIAL IV ONE ×2 (22:42→22:45)
[2021-04-02 00:03] VITALS: BP 86/56
[2021-04-02] MEDS: NOREPINEPHRINE 8 MG/250ML KIT 250 ML IV SCH (01:17)
[2021-04-02 01:56] VITALS: BP 88/61
[2021-04-02 02:47] LABS: Hematocrit 20.3 % (36.0-46.0)
[2021-04-02] MEDS ORDERED: SODIUM BICARBONATE 8.4% INJ 50ML SYRINGE ONE ×2 (02:52→02:57)
[2021-04-02 02:54] LABS: Hemoglobin 6.6 g/dL (12.2-16.2)
[2021-04-02 04:07] LABS: Albumin 1.4 g/dL (3.4-5.0); Potassium 5.3 mmol/L (3.5-5.1)
[2021-04-02 04:17] LABS: Bilirubin, Total 2.7 mg/dL (0.2-1.0); Total Protein 3.9 g/dL (6.4-8.2)
[2021-04-02 04:28] LABS: BUN/Creatinine Ratio 20.1
[2021-04-02 04:49] LABS: Calcium 5.7 mg/dL (8.5-10.1)
[2021-04-02] MEDS ORDERED: EPINEPHrine HCL 1 MG/10 ML SYRG IV ONE (12:43)
[2021-04-02] MEDS ORDERED: CALCIUM CHLOR(10%) 100MG/ML 10ML SYRINGE IV ONE (12:43)
[2021-04-02] MEDS ORDERED: DEXTROSE (50%) 50ML SYRG IV ONE (12:43)
[2021-04-02] MEDS ORDERED: SODIUM BICARBONATE 8.4% INJ 50ML SYRINGE IV ONE (12:43)
== END 2021-04-02 13:20 | DRG 871 ==
LOC: EDBD 14:37 → ER 14:37 → OVERFLOW 23:05 → TELE 03-25 02:07 → TELE-WESTW 03-25 02:42 → TELE 03-25 02:42 → TELE-WESTW 03-25 03:10 → ICU WEST 03-31 13:21
PROVIDERS: ADMIT Nurse Practitioner Family; ATTEND Internal Medicine
PROC: 02HV33Z Insertion of Infusion Device into Superior Vena Cava, Percutaneous Approach (ICD-10-PCS; principal; 2021-03-31)
PROC: 5A1945Z Respiratory Ventilation, 24-96 Consecutive Hours (ICD-10-PCS; 2021-03-31)
PROC: B548ZZA Ultrasonography of Superior Vena Cava, Guidance (ICD-10-PCS; 2021-03-31)
PROC: 0BH17EZ Insertion of Endotracheal Airway into Trachea, Via Natural or Artificial Opening (ICD-10-PCS; 2021-03-31)
PROC: 30233N1 Transfusion of Nonautologous Red Blood Cells into Peripheral Vein, Percutaneous Approach (ICD-10-PCS; 2021-03-31)
PROC: 30233K1 Transfusion of Nonautologous Frozen Plasma into Peripheral Vein, Percutaneous Approach (ICD-10-PCS; 2021-03-31)
PROC: 5A12012 Performance of Cardiac Output, Single, Manual (ICD-10-PCS; 2021-03-31)
PROC: 04HY32Z Insertion of Monitoring Device into Lower Artery, Percutaneous Approach (ICD-10-PCS; 2021-04-01)
PROC: 4A133B1 Monitoring of Arterial Pressure, Peripheral, Percutaneous Approach (ICD-10-PCS; 2021-04-01)
PROC: 4A133J1 Monitoring of Arterial Pulse, Peripheral, Percutaneous Approach (ICD-10-PCS; 2021-04-01)
DX: A41.9 Sepsis, unspecified organism (principal); N17.0 Acute kidney failure with tubular necrosis; G93.41 Metabolic encephalopathy; I21.A1 Myocardial infarction type 2; J96.01 Acute respiratory failure with hypoxia; N39.0 Urinary tract infection, site not specified; E87.2 Acidosis; R64 Cachexia; D62 Acute posthemorrhagic anemia; E87.0 Hyperosmolality and hypernatremia; Z68.1 Body mass index [BMI] 19.9 or less, adult; K92.2 Gastrointestinal hemorrhage, unspecified; R57.8 Other shock; E86.0 Dehydration; D25.9 Leiomyoma of uterus, unspecified; D63.8 Anemia in other chronic diseases classified elsewhere; R73.9 Hyperglycemia, unspecified; K20.90 Esophagitis, unspecified without bleeding; K29.80 Duodenitis without bleeding; D15.1 Benign neoplasm of heart; N18.2 Chronic kidney disease, stage 2 (mild); E87.6 Hypokalemia; I46.9 Cardiac arrest, cause unspecified; K21.9 Gastro-esophageal reflux disease without esophagitis; I12.9 Hypertensive chronic kidney disease with stage 1 through stage 4 chronic kidney disease, or unspecified chronic kidney disease; K72.90 Hepatic failure, unspecified without coma; N14.1 Nephropathy induced by other drugs, medicaments and biological substances; Z20.822 Contact with and (suspected) exposure to COVID-19; Z90.49 Acquired absence of other specified parts of digestive tract; Z98.51 Tubal ligation status; Z88.8 Allergy status to other drugs, medicaments and biological substances; Z86.73 Personal history of transient ischemic attack (TIA), and cerebral infarction without residual deficits
CPT/HCPCS: 36415; 36600; 70450; 70551; 71045; 74175; 74176; 76705; 76775; 80048; 80053; 80061; 80076; 81001; 82270; 82570; 82607; 82746; 82805; 82962; 83036; 83605; 83735; 83880; 83935; 84100; 84156; 84295; 84300; 84443; 84484; 85007; 85014; 85018; 85025; 85027; 85049; 85384; 85610; 86850; 86900; 86901; 86920; 87040; 87045; 87070; 87081; 87205; 87426; 87427; 92507; 92610; 92950; 93005; 93306; 93886; 94002; 94003; 95819; 97110; 97116; 97530; C9113; G0378; J0330; J0696; J2001; J2185; J2250; J2543; J3480; J3490; J7060